=== PATIENT | male | born 1990 | race Caucasian/White ===

== ENCOUNTER 2019-11-06 09:22 | Emergency (ER) | payer BC ==
[~2019-11-06] VITALS: Ht 203.2 cm; Wt 94.6 kg
[2019-11-06 09:31] VITALS: Ht 203.2 cm; Wt 94.6 kg
[2019-11-06 11:38] VITALS: BP 157/104
== END 2019-11-06 11:38 | disposition home or self-care (01) ==
LOC: ED 09:22
DX: M54.42 Lumbago with sciatica, left side (principal)
CPT/HCPCS: J1885